=== PATIENT | male | born 1990 | race Caucasian/White ===

== ENCOUNTER 2020-06-25 18:37 | Emergency (ER) | payer BC ==
[~2020-06-25] VITALS: Ht 170.2 cm; Wt 61.2 kg
[2020-06-25] MEDS ORDERED: BACITRACIN ZINC 0.9GM TP ONE ×2 (19:10→19:30)
[2020-06-25] MEDS ORDERED: TETANUS/DIPHTHERIA TOX ADULT 0.5 ML SYR ONE (19:11)
[2020-06-25] MEDS ORDERED: LIDOCAINE HCL 1% LOCAL INJ 20 ML VIAL ONE (19:11)
[2020-06-25] MEDS ORDERED: TETANUS/DIPHTHERIA TOX ADULT 0.5 ML SYR IM ONE (19:30)
[2020-06-25] MEDS ORDERED: LIDOCAINE HCL 1% 2 ML AMP INJ ONE (19:30)
[2020-06-25] MEDS ORDERED: BACITRACIN ZINC 15 GM OINT TOP STA (19:57)
[2020-06-25] MEDS ORDERED: BACTRIM DS TAB1 EACH PO (20:11)
== END 2020-06-25 20:17 | disposition home or self-care (01) ==
LOC: FSED 18:45
DX: S61.411A Laceration without foreign body of right hand, initial encounter (principal); W29.3XXA Contact with powered garden and outdoor hand tools and machinery, initial encounter
CPT/HCPCS: 12001; 73130; 90471; 90714; 99284; J2001